=== PATIENT | male | born 2000 | race Caucasian/White ===

== ENCOUNTER 2020-12-19 12:52 | Emergency (ER) | payer OTHER ==
[~2020-12-19] VITALS: Ht 167.6 cm; Wt 59.0 kg
[2020-12-19 12:56] VITALS: BP 124/98
[2020-12-19] MEDS ORDERED: TETRACAINE HCL/PF 0.5% OPTH 4 ML BTL ONE (13:03)
[2020-12-19] MEDS ORDERED: FLUORESCEIN OPTH STRIP 1 MG ONE (13:03)
--- NOTE | 2020-12-19 13:10 | NUR ---
EXAM AND EVAL BY DIONISIO ZAVALA, TOLERATED WELL.
--- NOTE | 2020-12-19 13:13 | NUR ---
RECEIVED 20 Y/O MALE, C/O SEVERE RIGHT EYE PAIN AFTER A PIECE OF SAWDUST TO RIGHT EYE, STATES HE HAS BEEN FLUSHING IT X 30 MIN, ADDITIONAL EYE FLUSH IN TRIAGE WITH NO IMPROVEMENT. PATIENT IS OBVIOUSLY UNCOMFORTABLE, RIGHT EYE IS RED, UPPER LID IS SWOLLEN, SCLERA IS RED AND IRRITATED. TETRACAINE INSTILLED ON ARRIVAL WITH RAPID RELIEF. GAGNON LAMP AND FLUORO STRIP TO BEDSIDE.
[2020-12-19] MEDS ORDERED: ERYT5OIN51 OP (13:26)
[2020-12-19] MEDS ORDERED: NAPR-54 PO (13:26)
[2020-12-19 13:35] VITALS: BP 124/98
--- NOTE | 2020-12-19 13:36 | NUR ---
Patient discharged with v/s stable. Written and verbal after care instructions given and explained. Patient alert, oriented and verbalized understanding of instructions. Ambulatory with steady gait. All questions addressed prior to discharge. ID band removed. Patient advised to follow up with PMD. Rx of ERYTHROMYCIN OPTH OINTMENT, NAPROSYN given. Patient educated on indication of medication including possible reaction and side effects. Opportunity to ask questions provided and answered.
== END 2020-12-19 13:36 | disposition home or self-care (01) ==
LOC: MED 12:52
DX: S05.01XA Injury of conjunctiva and corneal abrasion without foreign body, right eye, initial encounter (principal); X58.XXXA Exposure to other specified factors, initial encounter; Y93.89 Activity, other specified; Y92.89 Other specified places as the place of occurrence of the external cause; Y99.8 Other external cause status
CPT/HCPCS: 99283

== ENCOUNTER 2022-04-07 14:03 | Emergency (ER) | payer OTHER ==
[~2022-04-07] VITALS: Ht 167.6 cm; Wt 63.5 kg
[~2022-04-07 14:03] MED LIST: ERYT5OIN51 OP; NAPR-54 PO
[2022-04-07 14:12] VITALS: BP 115/70
--- NOTE | 2022-04-07 14:16 | NUR ---
PT W/C ASSISTED TO BED 9.
--- NOTE | 2022-04-07 14:26 | NUR ---
WHEELCHAIR ASSISTED TO BED C/O GENERALIZED ABD PAIN ONSET 2 DAYS AGO. PT STATES DRINKING ETOH 3 DAYS AGO AND DEVELOPED ABD PAIN AND VOMITING. NOT ACTIVELY VOMITING AT THIS TIME BUT STATES UNABLE TO KEEP FOOD OR LIQUID DOWN. VITALS STABLE, DENIES ANY TRAUMA OR INJURY TO ABD. IV ESTABLISHED TO RIGHT AC WITH 20G.
[2022-04-07] MEDS ORDERED: ONDANSETRON 4 MG/2 ML VIAL IVP ONE (14:40)
[2022-04-07] MEDS ORDERED: ALUMINUM HYD/MAG/SIMETHICONE 30 ML UDC PO ONE (14:40)
[2022-04-07] MEDS ORDERED: NACL 0.9% 1,000 ML IV ONE (14:40)
--- NOTE | 2022-04-07 14:57 | NUR ---
SUBSTITUTE TEACHER AT BEDSIDE
--- NOTE | 2022-04-07 14:58 | NUR ---
XR AT BEDSIDE
[2022-04-07 15:11] LABS: BASOPHILS # (AUTO) 0.1 K/uL (0.00-0.22); BASOPHILS % (AUTO) 0.4 % (0.0-2.0); HEMATOCRIT 43.6 % (36-52); HEMOGLOBIN 14.8 g/dL (12.0-18.0); LYMPHOCYTES # (AUTO) 0.9 K/uL (2.0-11.5); LYMPHOCYTES % (AUTO) 6.9 % (20.5-51.1); MEAN CORPUSCULAR HEMOGLOBIN 29 pg (27-31); MEAN CORPUSCULAR HGB CONC 34 g/dL (33-37); MEAN CORPUSCULAR VOLUME 86.6 fL (80-94); MONOCYTES # (AUTO) 0.7 K/uL (0.8-1.0); MONOCYTES % (AUTO) 5.5 % (1.7-9.3); NEUTROPHILS # (AUTO) 10.7 K/uL (1.8-7.7); NEUTROPHILS % (AUTO) 87.2 % (42.2-75.2); PLATELET COUNT (AUTO) 259 K/uL (140-450); RED BLOOD CELL COUNT(AUTO) 5.03 MIL/uL (4.20-6.10); RED CELL DISTRIBUTION WIDTH 13.9 % (11.6-13.7); WHITE BLOOD COUNT (AUTO) 12.3 K/uL (4.8-10.8)
[2022-04-07 15:22] LABS: ALBUMIN 4.5 g/dL (3.4-5.0); ANION GAP 13.8 (8-16); ASPARTATE AMINOTRANSFERASE 19 U/L (15-37); CARBON DIOXIDE 27.8 mmol/L (21-32); CHLORIDE 102 mmol/L (98-107); GFR ARICAN-AMERICAN 120 mL/min (>90); GLUCOSE 105 mg/dL (74-106); LIPASE 50 U/L (73-393); POTASSIUM 3.6 mmol/L (3.5-5.1); SODIUM SERUM 140 mmol/L (136-145); TOTAL BILIRUBIN 1.7 mg/dL (0.0-1.0); UREA NITROGEN, BLOOD 12 mg/dL (7-18)
[2022-04-07 15:35] LABS: BARBITURATE, URINE NEGATIVE ng/ml (NEG <=200); BENZODIAZEPINE, URINE NEGATIVE ng/mL (NEG <=200); CANNABINOID, URINE POSITIVE ng/mL (NEG <=50); COCAINE, URINE NEGATIVE ng/mL (NEG <=300); OPIATE, URINE NEGATIVE ng/mL (NEG <=2000); PHENCYCLIDINE SCREEN,URINE NEGATIVE ng/mL (NEG <=25)
[2022-04-07] MEDS ORDERED: FAMO-90 PO (16:10)
[2022-04-07] MEDS ORDERED: ONDA-188 PO (16:10)
[2022-04-07 16:15] VITALS: BP 121/63
--- NOTE | 2022-04-07 16:15 | NUR ---
Patient discharged with v/s stable. Written and verbal after care instructions given and explained. Patient alert, oriented and verbalized understanding of instructions. Ambulatory with steady gait. All questions addressed prior to discharge. ID band removed. Patient advised to follow up with PMD. Rx of PEPCID AND ZOFRAN given. Patient educated on indication of medication including possible reaction and side effects. Opportunity to ask questions provided and answered.
== END 2022-04-07 16:15 | disposition home or self-care (01) ==
LOC: MED 14:03
DX: S96.911A Strain of unspecified muscle and tendon at ankle and foot level, right foot, initial encounter (principal); K29.70 Gastritis, unspecified, without bleeding; F10.10 Alcohol abuse, uncomplicated; Y90.9 Presence of alcohol in blood, level not specified; X58.XXXA Exposure to other specified factors, initial encounter; Y93.89 Activity, other specified; Y92.89 Other specified places as the place of occurrence of the external cause; Y99.8 Other external cause status
CPT/HCPCS: 36415; 71045; 73630; 80053; 80305; 81002; 83690; 85025; 96374; 99284; G0482; J2405; J7030

== ENCOUNTER 2022-05-09 19:12 | Emergency (ER) | payer OTHER ==
[~2022-05-09] VITALS: Ht 167.6 cm; Wt 63.5 kg
[~2022-05-09 19:12] MED LIST changes: +FAMO-90 PO; +ONDA-188 PO
[2022-05-09 20:10] VITALS: BP 113/77
--- NOTE | 2022-05-09 20:20 | NUR ---
TO LOBBY A/W BED VIA W/C
[2022-05-09 21:47] LABS: BASOPHILS % (AUTO) 0.1 % (0.0-2.0); HEMATOCRIT 48.9 % (36-52); HEMOGLOBIN 16.5 g/dL (12.0-18.0); LYMPHOCYTES % (AUTO) 5.7 % (20.5-51.1); MEAN CORPUSCULAR HEMOGLOBIN 30 pg (27-31); MEAN CORPUSCULAR HGB CONC 34 g/dL (33-37); MEAN CORPUSCULAR VOLUME 87.9 fL (80-94); MONOCYTES # (AUTO) 0.8 K/uL (0.8-1.0); MONOCYTES % (AUTO) 4.8 % (1.7-9.3); NEUTROPHILS % (AUTO) 89.4 % (42.2-75.2); PLATELET COUNT (AUTO) 319 K/uL (140-450); RED BLOOD CELL COUNT(AUTO) 5.56 MIL/uL (4.20-6.10); RED CELL DISTRIBUTION WIDTH 14.8 % (11.6-13.7); WHITE BLOOD COUNT (AUTO) 16.7 K/uL (4.8-10.8)
--- NOTE | 2022-05-09 21:48 | NUR ---
PT RETURN FROM RADIOLOGY TO ER LOBBY
[2022-05-09 22:09] LABS: ALBUMIN 5.2 g/dL (3.4-5.0); ANION GAP 16.8 (8-16); CARBON DIOXIDE 28.4 mmol/L (21-32); CREATININE 1.4 mg/dL (0.6-1.3); POTASSIUM 4.2 mmol/L (3.5-5.1); TOTAL BILIRUBIN 1.9 mg/dL (0.0-1.0)
--- NOTE | 2022-05-09 23:20 | NUR ---
CALLED PT IN LOBBY AND OUTSIDE NO ANSWER.
--- NOTE | 2022-05-09 23:25 | NUR ---
CALLED PT'S NUMBER ON FILE, NO ANSWER.
--- NOTE | 2022-05-09 23:27 | NUR ---
Dottie verdugo in ED - 05/09/22 at 2329 by [facility] PATIENT LEFT WITHOUT BEING SEEN BY DR. WANG. NO FURTHER CARE PROVIDED FOR PATIENT.
--- NOTE | 2022-05-09 23:27 | NUR ---
Dottie verdugo in EDM - 05/09/22 at 2330 by MED PATIENT ELOPED FROM FACILITY. DISCHARGE INSTRUCTIONS NOT GIVEN TO PATIENT. DR. WANG NOTIFIED.
== END 2022-05-09 23:27 | disposition left against medical advice (07) ==
LOC: MED 19:12
DX: R10.9 Unspecified abdominal pain (principal); Z53.21 Procedure and treatment not carried out due to patient leaving prior to being seen by health care provider
CPT/HCPCS: 36415; 80053; 83690; 85025; 99283

== ENCOUNTER 2022-05-10 08:07 | Emergency (ER) | payer OTHER ==
[~2022-05-10] VITALS: Ht 165.1 cm; Wt 70.3 kg
[2022-05-10 08:31] VITALS: BP 121/70
[2022-05-10] MEDS ORDERED: FAMOTIDINE 20 MG/2 ML VIAL IVP ONE (08:50)
[2022-05-10] MEDS ORDERED: NACL 0.9% 2,000 ML IV ONE (08:50)
[2022-05-10] MEDS ORDERED: METOCLOPRAMIDE 10 MG/2 ML INJ VIAL IVP ONE (08:50)
--- NOTE | 2022-05-10 09:00 | NUR ---
22YO MALE PT C/O N/V-BLOOD AND LUQ ABDOMINAL PAIN X3DAYS. NOTES MILD CONSTIPATION. PT WAS RECENTLY SEEN IN ER, ELOPED , DX GATSRITIS/ ALCOHOL. STATES INITIAL ONSET OF SYMPTOMS STARTED AFTER DRINKING ALCOHOL, STATES DRINKING "LESS THAN USUAL". RUQ TENDER TO TOUCH, NON DISTENDED. DENIES CHEST PAIN , SOB, FEVER OR CHILLS. PT AAOX4, ON SENIOR HOUSEKEEPER. HX: GASTRITIS NKA
[2022-05-10 10:25] VITALS: BP 111/65
--- NOTE | 2022-05-10 10:50 | NUR ---
IV removed, catheter intact and site benign. Applied folded 4x4 gauze and tape to stop bleeding.
--- NOTE | 2022-05-10 10:54 | NUR ---
Patient discharged with v/s stable. Written and verbal after care instructions FOR DEHYDRATION AND CANNABINOID HYPEREMESIS SYNDROME given and explained. Patient verbalized understanding. Ambulatory with steady gait. All questions addressed prior to discharge. Advised to follow up with PMD.
--- NOTE | 2022-05-10 10:55 | NUR ---
The patient's care was reviewed and supervised by Nohemy Oates, RN, RN.
== END 2022-05-10 10:54 | disposition home or self-care (01) ==
LOC: MED 08:07
DX: R10.12 Left upper quadrant pain (principal); E86.0 Dehydration
CPT/HCPCS: 96361; 96374; 96375; 99284; J2765; J3490; J7030

== ENCOUNTER 2022-06-21 10:02 | Emergency (ER) | payer OTHER ==
[~2022-06-21] VITALS: Ht 165.1 cm; Wt 67.6 kg
[2022-06-21 10:08] VITALS: BP 105/54
--- NOTE | 2022-06-21 10:20 | NUR ---
PT RECEIVED, CARE ASSUMED. PT PRESENTS SELF TO ER WITH C/O LOWER ABDO PAIN, NAUSEA, VOMITING X2 DAYS. COLLECTED URINE, AWAITING TO BE SEEN BY
[2022-06-21] MEDS ORDERED: METOCLOPRAMIDE 10 MG/2 ML INJ VIAL IVP ONE (11:05)
[2022-06-21] MEDS ORDERED: NACL 0.9% 1,000 ML IV ONE (11:05)
[2022-06-21] MEDS ORDERED: FAMOTIDINE 20 MG TAB PO ONE (11:05)
[2022-06-21] MEDS ORDERED: KETOROLAC 15 MG/ML VIAL IVP ONE (11:05)
--- NOTE | 2022-06-21 11:40 | NUR ---
PT SUDDENLY GOT OUT OF BED AND BECAME ANXIOUS. PT SHAKING AND PACING AROUND IN BED. PT STATES "GET THE IV OUT AND LET ME LEAVE" IV PULLED OUT. INFORMED .
[2022-06-21 11:43] LABS: BASOPHILS # (AUTO) 0.2 K/uL (0.00-0.22); BASOPHILS % (AUTO) 1.5 % (0.0-2.0); EOSINOPHILS % (AUTO) 0.1 % (0.0-4.0); HEMATOCRIT 43.9 % (36-52); HEMOGLOBIN 15.1 g/dL (12.0-18.0); LYMPHOCYTES # (AUTO) 1.2 K/uL (2.0-11.5); LYMPHOCYTES % (AUTO) 11.4 % (20.5-51.1); MEAN CORPUSCULAR HEMOGLOBIN 30 pg (27-31); MEAN CORPUSCULAR HGB CONC 34 g/dL (33-37); MEAN CORPUSCULAR VOLUME 87.6 fL (80-94); MONOCYTES # (AUTO) 0.3 K/uL (0.8-1.0); MONOCYTES % (AUTO) 3.3 % (1.7-9.3); NEUTROPHILS # (AUTO) 8.6 K/uL (1.8-7.7); NEUTROPHILS % (AUTO) 83.7 % (42.2-75.2); PLATELET COUNT (AUTO) 284 K/uL (140-450); RED BLOOD CELL COUNT(AUTO) 5.02 MIL/uL (4.20-6.10); RED CELL DISTRIBUTION WIDTH 16.1 % (11.6-13.7); WHITE BLOOD COUNT (AUTO) 10.3 K/uL (4.8-10.8)
--- NOTE | 2022-06-21 11:45 | NUR ---
PT REQUESTING IV TO BE TAKEN OUT AT THIS TIME, ERMD AT BEDSIDE, PT WANTS TO LEAVE AMA.
[2022-06-21] MEDS ORDERED: diphenhydrAMINE 50 MG CAP PO ONE ×2 (11:49→12:00)
--- NOTE | 2022-06-21 11:50 | NUR ---
PT CURRENTY YELLING, RESTLESS AND PACING IN ROOM AT THIS TIME
[2022-06-21 11:56] LABS: ALBUMIN 5.2 g/dL (3.4-5.0); ANION GAP 9.7 (8-16); CREATININE 0.9 mg/dL (0.6-1.3); POTASSIUM 3.7 mmol/L (3.5-5.1); TOTAL BILIRUBIN 1.8 mg/dL (0.0-1.0)
--- NOTE | 2022-06-21 12:00 | NUR ---
PT SLEEP IN BED. NO ACUTE DISTRESS. WILL CONTINUE TO MONITOR
[2022-06-21] MEDS ORDERED: ONDA-188 PO (14:52)
[2022-06-21] MEDS ORDERED: IBUP-2213 PO (14:52)
[2022-06-21 15:18] LABS: BILIRUBIN,URINE 1+ (NEGATIVE); BLOOD, URINE NEGATIVE (NEGATIVE); LEUKOCYTE ESTERASE ,URINE NEGATIVE (NEGATIVE); NITRITE, URINE NEGATIVE (NEGATIVE); PH,URINE >=9.0 (5.0-9.0); UGLUCOSE NEGATIVE (NEGATIVE)
[2022-06-21 15:22] LABS: APPEARANCE,URINE CLEAR (CLEAR); COLOR,URINE YELLOW (YELLOW)
[2022-06-21 15:32] VITALS: BP 132/71
--- NOTE | 2022-06-21 15:36 | NUR ---
Patient discharged with v/s stable. Written and verbal after care instructions given and explained. Patient verbalized understanding. Ambulatory with steady gait. All questions addressed prior to discharge. Advised to follow up with PMD.
--- NOTE | 2022-06-25 09:02 | NUR ---
LATE ENTRY -- CONFIRMED WITH NURSE NS INFUSION COMPLETED AT 1231 06/21/22
== END 2022-06-21 15:36 | disposition home or self-care (01) ==
LOC: MED 10:02
DX: G25.71 Drug induced akathisia (principal); T45.0X5A Adverse effect of antiallergic and antiemetic drugs, initial encounter; R11.2 Nausea with vomiting, unspecified; R10.30 Lower abdominal pain, unspecified; F12.90 Cannabis use, unspecified, uncomplicated; Z11.3 Encounter for screening for infections with a predominantly sexual mode of transmission; Z79.899 Other long term (current) drug therapy; Z98.890 Other specified postprocedural states; Y92.89 Other specified places as the place of occurrence of the external cause
CPT/HCPCS: 36415; 80053; 81003; 83690; 85025; 87491; 96361; 96374; 96375; 99284; J1885; J2765; J7030; Q0163

== ENCOUNTER 2022-07-12 07:08 | Emergency (ER) | payer OTHER ==
[~2022-07-12] VITALS: Ht 167.6 cm; Wt 65.8 kg
[~2022-07-12 07:08] MED LIST changes: +IBUP-2213 PO
[2022-07-12 07:20] VITALS: BP 138/76
[2022-07-12] MEDS ORDERED: ONDANSETRON 4 MG/2 ML VIAL IVP ONE (07:30)
[2022-07-12] MEDS ORDERED: NACL 0.9% 1,000 ML IV ONE ×2 (07:30→08:30)
[2022-07-12] MEDS ORDERED: KETOROLAC 15 MG/ML VIAL IVP ONE (07:30)
[2022-07-12 07:51] LABS: BASOPHILS % (AUTO) 0.3 % (0.0-2.0); HEMATOCRIT 48.8 % (36-52); HEMOGLOBIN 16.3 g/dL (12.0-18.0); LYMPHOCYTES % (AUTO) 8.2 % (20.5-51.1); MEAN CORPUSCULAR HEMOGLOBIN 30 pg (27-31); MEAN CORPUSCULAR HGB CONC 33 g/dL (33-37); MEAN CORPUSCULAR VOLUME 89.2 fL (80-94); MONOCYTES # (AUTO) 0.5 K/uL (0.8-1.0); MONOCYTES % (AUTO) 4.5 % (1.7-9.3); NEUTROPHILS # (AUTO) 10.4 K/uL (1.8-7.7); PLATELET COUNT (AUTO) 318 K/uL (140-450); RED BLOOD CELL COUNT(AUTO) 5.47 MIL/uL (4.20-6.10); RED CELL DISTRIBUTION WIDTH 16.8 % (11.6-13.7)
--- NOTE | 2022-07-12 07:56 | NUR ---
Pt bibs for abd pain since tuesday, with episodes of nauesa. States normal bowel and urine patterns. Pt is a/o x 4, vss, no ss of acute distress, breathing equal and unlabored, speech clear. Pt on monitor. IV started. Labs handed to lab at bedside. IV fluid initaited. Meds not available, pharmacy notified.
[2022-07-12 08:06] LABS: ALBUMIN 5.7 g/dL (3.4-5.0); ANION GAP 21.8 (8-16); CARBON DIOXIDE 22.1 mmol/L (21-32); CREATININE 1.3 mg/dL (0.6-1.3); POTASSIUM 3.9 mmol/L (3.5-5.1); TOTAL BILIRUBIN 1.8 mg/dL (0.0-1.0)
[2022-07-12] MEDS ORDERED: ONDANSETRON 4 MG/2 ML VIAL ONE (08:42)
[2022-07-12] MEDS ORDERED: KETOROLAC 15 MG/ML VIAL ONE (08:43)
[2022-07-12] MEDS ORDERED: ONDA-188 PO (09:20)
[2022-07-12 10:08] VITALS: BP 125/78
== END 2022-07-12 10:08 | disposition home or self-care (01) ==
LOC: MED 07:08
DX: K52.9 Noninfective gastroenteritis and colitis, unspecified (principal)
CPT/HCPCS: 36415; 80053; 83690; 85025; 96361; 96374; 96375; 99284; J1885; J2405; J7030

== ENCOUNTER 2022-11-25 11:06 | Emergency (ER) | payer OTHER ==
[~2022-11-25] VITALS: Ht 167.6 cm; Wt 61.2 kg
--- NOTE | 2022-11-25 11:18 | NUR ---
PATIENT AMBULATED TO ER BED 04
[2022-11-25 11:23] VITALS: BP 120/82; PULSE 103; RESP 16; TEMP 97.8; O2SAT 98
[2022-11-25] MEDS ORDERED: LORA1T1237 PO (12:52)
[2022-11-25 13:14] VITALS: O2SAT 98
== END 2022-11-25 13:15 | disposition home or self-care (01) ==
LOC: MED 11:06
DX: R51.9 Headache, unspecified (principal); R09.82 Postnasal drip; Z79.899 Other long term (current) drug therapy; Z98.890 Other specified postprocedural states
CPT/HCPCS: 70450; 99284

== ENCOUNTER 2022-12-01 13:09 | Emergency (ER) | payer OTHER ==
[~2022-12-01] VITALS: Ht 167.6 cm; Wt 68.0 kg
[~2022-12-01 13:09] MED LIST changes: +LORA1T1237 PO
[2022-12-01 13:23] VITALS: BP 117/74; PULSE 104; RESP 18; TEMP 97.6; O2SAT 98
[2022-12-01] MEDS ORDERED: KETOROLAC 30 MG/ML VIAL IM ONE (14:15)
[2022-12-01] MEDS ORDERED: CYCL-711 PO (15:16)
[2022-12-01] MEDS ORDERED: LID5T TP (15:16)
[2022-12-01] MEDS ORDERED: IBUP-2213 PO (15:16)
--- NOTE | 2022-12-01 15:25 | NUR ---
Patient discharged with v/s stable. Written and verbal after care instructions given and explained. Patient alert, oriented and verbalized understanding of instructions. Ambulatory with steady gait. All questions addressed prior to discharge. ID band removed. Patient advised to follow up with PMD. Rx of LIDODERM, MOTRIN, FLEXERIL given. Patient educated on indication of medication including possible reaction and side effects. Opportunity to ask questions provided and answered.
== END 2022-12-01 15:25 | disposition home or self-care (01) ==
LOC: MED 13:09
DX: S13.4XXA Sprain of ligaments of cervical spine, initial encounter (principal); R25.2 Cramp and spasm; Z79.899 Other long term (current) drug therapy; X58.XXXA Exposure to other specified factors, initial encounter; Y93.89 Activity, other specified; Y92.89 Other specified places as the place of occurrence of the external cause; Y99.8 Other external cause status
CPT/HCPCS: 72072; 96372; 99283; J1885

== ENCOUNTER 2023-02-05 12:46 | Emergency (ER) | payer OTHER ==
[~2023-02-05] VITALS: Ht 167.6 cm; Wt 68.0 kg
[~2023-02-05 12:46] MED LIST changes: +CYCL-711 PO; +LID5T TP
[2023-02-05 13:13] VITALS: BP 110/82; PULSE 87; RESP 20; TEMP 98.1; O2SAT 100
[2023-02-05 13:15] VITALS: O2SAT 100
[2023-02-05] MEDS ORDERED: ONDA-188 SL (13:28)
[2023-02-05] MEDS ORDERED: IBUP-2213 PO (13:28)
[2023-02-05] MEDS ORDERED: BPM/118S31 PO (13:28)
[2023-02-05] MEDS ORDERED: ACET-10509 PO (13:28)
[2023-02-05 13:56] VITALS: BP 128/72; PULSE 74; RESP 15; TEMP 98.8
== END 2023-02-05 13:57 | disposition home or self-care (01) ==
LOC: MED 12:46
DX: U07.1 COVID-19 (principal); Z79.899 Other long term (current) drug therapy
CPT/HCPCS: 99283

== ENCOUNTER 2023-02-08 12:19 | Emergency (ER) | payer OTHER ==
[~2023-02-08] VITALS: Ht 167.6 cm; Wt 68.0 kg
[~2023-02-08 12:19] MED LIST changes: +ACET-10509 PO; +BROM118S70 PO; +ONDA-188 SL
[2023-02-08 12:37] VITALS: BP 103/65; PULSE 92; RESP 18; TEMP 98.6; O2SAT 96
[2023-02-08] MEDS ORDERED: ALBU0.0912 INH (12:49)
== END 2023-02-08 12:57 | disposition home or self-care (01) ==
LOC: MED 12:19
DX: U07.1 COVID-19 (principal); Z79.899 Other long term (current) drug therapy
CPT/HCPCS: 99283

== ENCOUNTER 2023-06-19 20:01 | Emergency (ER) | payer OTHER ==
[~2023-06-19] VITALS: Ht 167.6 cm; Wt 77.1 kg
[~2023-06-19 20:01] MED LIST changes: +ALBU0.0912 INH
[2023-06-19 20:29] VITALS: BP 126/71; PULSE 97; RESP 18; TEMP 97.2; O2SAT 98
== END 2023-06-20 00:05 | disposition left against medical advice (07) ==
LOC: MED 20:01
DX: R20.0 Anesthesia of skin (principal); Z53.21 Procedure and treatment not carried out due to patient leaving prior to being seen by health care provider
CPT/HCPCS: 99282

== ENCOUNTER 2023-06-20 18:35 | Emergency (ER) | payer OTHER ==
[~2023-06-20] VITALS: Ht 167.6 cm; Wt 54.4 kg
[2023-06-20 19:08] VITALS: BP 125/73; PULSE 114; RESP 22; TEMP 98; O2SAT 98
[2023-06-20 21:00] VITALS: PULSE 100; RESP 18; O2SAT 95
== END 2023-06-20 21:00 | disposition home or self-care (01) ==
LOC: MED 18:35
DX: G56.03 Carpal tunnel syndrome, bilateral upper limbs (principal); Z79.899 Other long term (current) drug therapy; Z79.1 Long term (current) use of non-steroidal anti-inflammatories (NSAID); Z79.2 Long term (current) use of antibiotics
CPT/HCPCS: 99283

== ENCOUNTER 2023-10-25 21:49 | Emergency (ER) | payer OTHER ==
[~2023-10-25] VITALS: Ht 167.6 cm; Wt 74.8 kg
[~2023-10-25 21:49] MED LIST changes: +NAPR-337 PO; -NAPR-54 PO
[2023-10-25 21:59] VITALS: BP 146/77; PULSE 95; RESP 16; TEMP 97.9; O2SAT 98
[2023-10-26] MEDS ORDERED: NAPR-337 PO (00:49)
[2023-10-26 00:50] VITALS: BP 134/76; PULSE 94; RESP 16; TEMP 97.9; O2SAT 98
== END 2023-10-26 00:50 | disposition home or self-care (01) ==
LOC: MED 21:49
DX: S93.492A Sprain of other ligament of left ankle, initial encounter (principal); Z79.899 Other long term (current) drug therapy; X58.XXXA Exposure to other specified factors, initial encounter; Y93.89 Activity, other specified; Y92.89 Other specified places as the place of occurrence of the external cause; Y99.8 Other external cause status
CPT/HCPCS: 73610; 99283

== ENCOUNTER 2023-11-17 01:12 | Emergency (ER) | payer OTHER ==
[~2023-11-17] VITALS: Ht 165.1 cm; Wt 63.5 kg
[2023-11-17 01:25] VITALS: BP 146/94; PULSE 108; RESP 18; TEMP 96.8; O2SAT 100
[2023-11-17 01:39] LABS: BASOPHILS % (AUTO) 0.5 % (0.0-2.0); EOSINOPHILS # (AUTO) 0.1 K/uL (0-0.4); EOSINOPHILS % (AUTO) 1.6 % (0.0-4.0); HEMATOCRIT 43.6 % (36-52); HEMOGLOBIN 14.8 g/dL (12.0-18.0); LYMPHOCYTES # (AUTO) 3.7 K/uL (2.0-11.5); MEAN CORPUSCULAR HEMOGLOBIN 30 pg (27-31); MEAN CORPUSCULAR HGB CONC 34 g/dL (33-37); MEAN CORPUSCULAR VOLUME 88.8 fL (80-94); MONOCYTES # (AUTO) 0.6 K/uL (0.8-1.0); MONOCYTES % (AUTO) 7.4 % (1.7-9.3); NEUTROPHILS # (AUTO) 3.4 K/uL (1.8-7.7); NEUTROPHILS % (AUTO) 43.5 % (42.2-75.2); PLATELET COUNT (AUTO) 251 K/uL (140-450); RED CELL DISTRIBUTION WIDTH 16.2 % (11.6-13.7); WHITE BLOOD COUNT (AUTO) 7.9 K/uL (4.8-10.8)
[2023-11-17] MEDS: MORPHINE SULFATE 4 MG/ML SYR IVP ONE (01:42)
[2023-11-17] MEDS: ONDANSETRON 4 MG/2 ML VIAL IVP ONE (01:43)
[2023-11-17 01:52] LABS: INR 1.02 (0.8-1.2); PARTIAL THROMBOPLASTIN TIME 25.6 secs (22-35.6); PROTHROMBIN TIME 10.7 secs (10.8-13.4)
[2023-11-17] MEDS: NACL 0.9% 1,000 ML IV ONE (02:07)
[2023-11-17 03:18] LABS: ANION GAP 17.8 (8-16); CALCIUM 9.1 mg/dL (8.5-10.1); CREATININE 0.8 mg/dL (0.6-1.3); POTASSIUM 3.8 mmol/L (3.5-5.1)
[2023-11-17 03:20] LABS: BILIRUBIN,DIRECT 0.2 mg/dL (0.0-0.3); TOTAL BILIRUBIN 0.9 mg/dL (0.0-1.0)
[2023-11-17 03:21] LABS: ALBUMIN 4.7 g/dL (3.4-5.0); TOTAL PROTEIN, SERUM 7.5 g/dL (6.4-8.2)
[2023-11-17 04:05] VITALS: BP 99/43; PULSE 78; RESP 17; TEMP 97.9; O2SAT 99
== END 2023-11-17 04:05 | disposition home or self-care (01) ==
LOC: MED 01:12
DX: R07.89 Other chest pain (principal); R06.02 Shortness of breath; M54.9 Dorsalgia, unspecified; R10.13 Epigastric pain; Z79.1 Long term (current) use of non-steroidal anti-inflammatories (NSAID); Z79.2 Long term (current) use of antibiotics; Z79.899 Other long term (current) drug therapy
CPT/HCPCS: 36415; 71260; 74177; 80048; 80076; 83605; 83690; 83880; 84484; 85025; 85610; 85730; 93005; 96361; 96374; 96375; 99285; J2270; J2405; J7030; Q9967